=== PATIENT | male | born 2000 | race Caucasian/White ===

== ENCOUNTER 2019-06-26 21:08 | Emergency (ER) | payer OTHER ==
[~2019-06-26] VITALS: Ht 167.6 cm; Wt 99.8 kg
[2019-06-26] MEDS ORDERED: Benadryl Itch28.3 GM TOP (21:30)
[2019-06-26] MEDS ORDERED: Cleocin HCl150 MG PO (21:30)
== END 2019-06-26 21:39 | disposition home or self-care (01) ==
LOC: ER 21:08
DX: T63.461A Toxic effect of venom of wasps, accidental (unintentional), initial encounter (principal); Z88.0 Allergy status to penicillin
CPT/HCPCS: 99282

== ENCOUNTER → 2021-05-19 | Outpatient (CLI) | payer OTHER ==
[~2021-05-19] MED LIST: Benadryl Itch28.3 GM TOP; Cleocin HCl150 MG PO
[2021-05-19 19:47] LABS: BASOPHILS ABSOLUTE AUTO 0.03 K/mm3 (0.00-0.23); BASOPHILS PERCENT AUTO 0 % (0-2); EOSINOPHILS ABSOLUTE AUTO 0.15 K/mm3 (0.00-0.68); EOSINOPHILS PERCENT AUTO 2 % (0-6); Hemoglobin 15.7 g/dL (13.5-17.5); IMMATURE GRAN ABSOLUTE AUTO 0.02 K/mm3 (0.00-0.10); IMMATURE GRAN PERCENT AUTO 0 % (0-1); LYMPHOCYTES ABSOLUTE AUTO 2.37 K/mm3 (0.84-5.20); LYMPHOCYTES PERCENT AUTO 29 % (21-46); MONOCYTES ABSOLUTE AUTO 0.61 K/mm3 (0.16-1.47); MONOCYTES PERCENT AUTO 8 % (4-13); Mean Corpuscular HGB 31.2 pg (26.0-34.0); Mean Corpuscular HGB Conc 34.1 g/dL (31.5-36.5); Mean Corpuscular Volume 92 fL (80-100); NEUTROPHILS ABSOLUTE AUTO 4.95 K/mm3 (1.96-9.15); NEUTROPHILS PERCENT AUTO 61 % (41-73); Platelet Count 256 K/mm3 (150-400); RDW Coefficient Variation 12.7 % (11.7-14.2); RDW Standard Deviation 42.5 fL (35.1-46.3); Red Blood Cell Count 5.03 M/mm3 (4.30-5.90); White Blood Cell Count 8.13 K/mm3 (4.00-11.30)
[2021-05-19 20:16] LABS: Alanine Aminotransfer (ALT/SGP 88 U/L (12-78); Albumin, Blood 4.3 g/dL (3.4-5.0); Albumin/Globulin Ratio 1.3 (0.8-1.8); Alk Phos 74 U/L (50-136); Anion Gap 5 mmol/L (6-16); Aspartate Aminotrans (AST/SGOT 48 U/L (12-37); Bilirubin, Total 0.7 mg/dL (0.1-1.0); Blood Urea Nitrogen 13 mg/dL (8-24); Bun/Creatinine Ratio 13.3 (12.0-20.0); CO2, Blood 26 mmol/L (21-32); Calcium, Blood 9.6 mg/dL (8.5-10.1); Chloride, Blood 107 mmol/L (98-108); Creatinine, Blood 0.98 mg/dL (0.60-1.20); Globulin, Blood 3.3 g/dL (2.2-4.0); Glomerular Filtration Rate >60 (60-); Glucose, Blood 88 mg/dL (70-99); Sodium, Blood 138 mmol/L (136-145); Total Protein, Blood 7.6 g/dL (6.4-8.2)
== END | disposition home or self-care (01) ==
LOC: LAB SHORT 14:52 → LAB 14:52
PROVIDERS: Family Medicine
DX: F90.9 Attention-deficit hyperactivity disorder, unspecified type (principal)
CPT/HCPCS: 80053; 84443; 85025

== ENCOUNTER 2024-11-04 00:59 | Emergency (ER) | payer OTHER ==
[~2024-11-04] VITALS: Ht 172.7 cm; Wt 95.2 kg
[~2024-11-04 00:59] MED LIST changes: +AMITRIPTYLINE H25 MG PO; +METPHE20 PO; +NEURONTIN300 MG PO
[2024-11-04] MEDS ORDERED: HyDROXyzine HCl 25 MG Tab PO ONE (01:10)
[2024-11-04] MEDS ORDERED: HYDHCL25 PO (02:18)
[2024-11-04] MEDS ORDERED: ALPRAZolam 0.5 MG Tab PO ONE (02:20)
[2024-11-04 02:43] VITALS: BP 141/90
== END 2024-11-04 02:45 | disposition home or self-care (01) ==
LOC: ER 00:59
DX: F41.0 Panic disorder [episodic paroxysmal anxiety] (principal); Z59.00 Homelessness unspecified; Z56.6 Other physical and mental strain related to work; I10 Essential (primary) hypertension; F90.9 Attention-deficit hyperactivity disorder, unspecified type; F20.9 Schizophrenia, unspecified; Z88.0 Allergy status to penicillin; Z88.1 Allergy status to other antibiotic agents; Z79.899 Other long term (current) drug therapy
CPT/HCPCS: 71046; 93005; 93010; 99285-25; A9270

== ENCOUNTER → 2024-11-08 | Outpatient (CLI) | payer OTHER ==
[~2024-11-08] MED LIST changes: +HYDHCL25 PO
== END ==
LOC: LAB SHORT 15:24 → LAB 15:24
PROVIDERS: Physician Assistant
DX: Z51.81 Encounter for therapeutic drug level monitoring (principal); Z79.899 Other long term (current) drug therapy
CPT/HCPCS: G0480